=== PATIENT | female | born 1990 | race Caucasian/White ===

== ENCOUNTER 2016-07-14 04:09 | Inpatient (IN) | payer BC, OTHER ==
[~2016-07-14] VITALS: Ht 177.8 cm; Wt 77.2 kg
[~2016-07-14 04:09] MED LIST: BCPILLS PO; MULT1CAP16 PO
[2016-07-14 04:28] VITALS: O2SAT 98
[2016-07-14 04:33] LABS: HEMATOCRIT 38.7 % (37-47); MEAN CELL VOLUME 87.4 fL (80-100); MEAN CORPUSCULAR HGB CONC 34.4 g/dl (32-36); MEAN PLATELET VOLUME 9.5 fL (7.4-10.4); PLATELET COUNT 272 K/uL (130-400); RED BLOOD COUNT 4.43 M/uL (4.2-5.4); WHITE BLOOD COUNT 5.06 K/uL (4.8-10.8)
[2016-07-14 04:37] LABS: MANUAL MICROSCOPIC REQUIRED? NO; REVIEW REQ? NO; URINE APPEARANCE CLEAR (CLEAR); URINE BILIRUBIN NEG (NEG); URINE COLOR YELLOW; URINE NITRITE NEG (NEG); URINE PH 6.5 (4.5-7.5); URINE SPECIFIC GRAVITY 1.005 (1.000-1.030); UROBILINOGEN NEG (NEG)
[2016-07-14 04:52] LABS: CALCIUM 8.5 mg/dl (8.5-10.1); CREATININE 0.83 mg/dl (0.60-1.20); MAGNESIUM 1.9 mg/dl (1.8-2.4); POTASSIUM 3.7 mmol/L (3.5-5.1)
[2016-07-14 04:57] LABS: BASO % 0.2 %; BASO ABS # 0.01 K/uL (0-0.2); COMPLETE YES; EOS % 0.6 %; IG% 0.2 %; LYMPH % 56.1 %; LYMPH ABS # 2.84 K/uL (1.2-3.4); MONO % 4.9 %
[2016-07-14 04:58] LABS: BENZODIAZEPINE, URINE NEG (NEG); COCAINE,URINE NEG (NEG); PHENCYCLIDINE, URINE NEG (NEG)
[2016-07-14 05:03] LABS: THYROID STIMULATING HORMONE 2.85 uIu/ml (0.300-4.500)
[2016-07-14 05:41] LABS: ACETAMINOPHEN < 2 ug/ml (10-30)
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
[2016-07-14 09:11] VITALS: O2SAT 98
[2016-07-14] MEDS ORDERED: BISMUTH SUBSALICYLATE PER ML OMNICELL CHARGE PO PRN (11:15)
[2016-07-14] MEDS ORDERED: ACETAMINOPHEN 325 MG TAB PO PRN (11:15)
[2016-07-14] MEDS ORDERED: MAGNESIUM HYDROXIDE SUSP 30 ML UDC PO PRN (11:15)
[2016-07-14] MEDS ORDERED: ALUMINUM/MAGNESIUM SUSP 30 ML UDC PO PRN (11:15)
[2016-07-14] MEDS ORDERED: SODIUM CHLORIDE 0.65% NA SOLN 45 ML (OCEAN) PRN (11:15)
[2016-07-14] MEDS ORDERED: NON-FORMULARY MEDICATION SCH (11:15)
[2016-07-14] MEDS ORDERED: hydrOXYzine HCL 25 MG TAB PO PRN (11:15)
--- NOTE | 2016-07-14 11:46 | EMERGENCY ROOM VISIT NOTE ---
ED Visit Note First contact with patient: 07:50 The patient was signed out to me at shift change by Jeffrey Courtney PA-C. Please see his dictation for additional details and hospital course. Briefly, the patient was brought in for alcohol intoxication. The patient had made some statements indicating suicidal ideation. The patient was monitored closely and for several hours and allowed to become more sober. She was evaluated in the morning by 3 S. The patient will be admitted to [address] [id number] voluntarily on a 201.
[2016-07-14 12:47] VITALS: BP 113/71; PULSE 84; TEMP 36.7; Ht 177.8 cm; Wt 77.2 kg
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
[2016-07-15 06:55] VITALS: BP_SYST 110; BP_SYST 123; BP_DIAS 70; BP_DIAS 83; PULSE 70; PULSE 86; TEMP 36.5
[2016-07-15] MEDS: CITALOPRAM 20 MG TAB PO SCH (09:18)
--- NOTE | 2016-07-15 12:53 | Psychiatric Progress Notes ---
Progress Note Date of Service July 15, 2016. Interval History 25 yo female admitted voluntarily on 07/14 after drinking and making suicidal statements. She has been struggling with depression since her sister in 2016 from complications from diabetes. Chief Complaint "OK". Subjective Patient was seen & assessed interval progress reviewed with Treatment Team. The patient says that she is still adjusting to the unit. She had disturbed sleep, feeling restless most of the night, missing her fiance. Her mood remains depressed, but denies acute SI today saying that it was the combination of a lot of things, not the least of which was alcohol, that caused her to feel suicidal. She has decided not to drink for a while and plans to avoid the friends that do nothing but drink as a means of socializing. She reviews her stressors including the loss of her sister, and her parents "who don't make very good decisions as adults". Apparently her sister took care of her parents until her , and then "the torch passed to me" when sister . Chelsey is still paying off the costs, which she had to put on her credit card, as neither parent could afford to do so. 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 She doesn't want to tell him that this is a stressor because she knows that he already feels badly about his job and income. Review of Systems Constitutional: + fatigue ENT: No dental problems, No hearing loss, No nasal symptoms, No problem reported, No sore throat, No tinnitus, No trouble swallowing, No unusual epistaxis Respiratory: No cough, No dyspnea at rest, No dyspnea on exertion, No hemoptysis, No problem reported, No shortness of breath, No sputum, No wheezing Cardiovascular: No PND, No chest pain, No claudication, No edema, No orthopnea , No palpitations, No problem reported Abdomen: No GI bleeding, No constipation, No diarrhea, No nausea, No pain, No problem reported, No vomiting Musculoskeletal: No calf pain, No joint pain, No muscle pain, No problem reported, No swelling Neurologic: No balance problems, No memory loss, No numbness/tingling, No paralysis, No problem reported, No vertigo, No weakness Psychiatric: + depression symptoms, + insomnia Integumentary: No bleeding, No color change, No itch, No new/changing skin lesions, No problem reported, No rash Sleep Information Total Hours of Sleep: 9.50 Meal Information Percent of Breakfast Consumed: 90 Percent of Lunch Consumed: 0 Percent of Dinner Consumed: 75 Mental Status Exam During interview pt is: alert and oriented, cooperative Appearance: appropriately dressed, appropriately groomed Eye contact is: good, other (no eye contact) Motor behavior is: no abnormal motor movements Speech: normal in rate, rhythm & volume Affect: depressed, flat Mood is: depressed Thought process: goal directed Thought content: reality based without delusions Suicidal thought are: denied Homicidal thoughts are: denied Hallucinations: denies auditory, denies visual Cognition: attention grossly intact, language grossly intact, other (memory impaired for events while intoxicated) Intelligence estimated to be: average Insight: impaired Judgement: impaired Impression Adjusting to the unit, is missing her fiance. Is tolerating start of Celexa, which she says that she was on last year, was initially helpful, then stopped working. Can't remember max dose. Denies side effects. Will continue 20mg. but increase to 40 mg MICHELLE for max benefit. Will need family meeting with jus. Plan (1) suicidal ideation and cutting Every 15 minute checks for safety Encourage group attendance and participation to work on healthy coping skills and discharge safety plan Family meeting with nahid, will recommend no access to guns, large amounts of pills, or alcohol. (2) Depression Patient agrees that she's been depressed and is willing to go back on citalopram , which she found helpful in the past. We will start 20 mg daily tomorrow, as she is quite hung over and not feeling well today. She will need a referral for outpatient psychiatric follow-up and therapy. Family meeting with nahid whom she lives with. 07/15 - Continue Celexa 20 mg. titrating to 40 mg. as quickly as tolerated - Arrange family meeting with jus (3) Alcohol use with intoxication Tylenol as needed for headache. Encourage fluid intake. Brief intervention performed, was greater than 5 minutes, and consisted of education about the risks of ongoing alcohol use, including risk of worsening depression or interacting with medications. Recommendations will be for a period of abstinence, and this will need to be addressed with motivational interviewing throughout her stay. Visit Code E&M Code: 89281 Inventory Assets Strengths: "I'm a hard worker," "I'm dedicated. Risk Factors Assessment : Yes /single/: Yes Health problems: No Mental Health Diagnoses: Yes Previous attempt: Yes Previous attempt; didn't tell: Yes Family history of suicide: No Previous psychiatric stay: No Hopelessness: Yes Smoker: No Protective Factors Assessment Mandaeism beliefs: No : No Responsible for young children: No Employed: Yes Stable relationships: Yes Supportive family: No Good rapport with provider: No Data Vital Signs Last 24 Hrs: Date Time Temp Pulse Resp B/P Pulse Ox O2 Delivery O2 Flow Rate FiO2 07/15/16 06:55 36.5 70 16 110/70 86 123/83 07/14/16 12:47 36.7 84 16 113/71 Meds Administered Last 24 Hrs: Meds Administered (Past 24Hrs) Medications (Trade) Dose Ordered Sig/Olvin Route Start Time Stop Time Status Last Admin Dose Admin Acetaminophen (Tylenol Tab) 650 mg Q4H PRN PO 07/14/16 11:15 08/13/16 11:14 07/14/16 13:46 650 MG Citalopram Hydrobromide (celeXA TAB) 20 mg QAM PO 07/15/16 09:00 08/14/16 08:59 07/15/16 09:18 20 MG Lab Results Last 24 Hrs: 07/14/16 04:22 Red Blood Count 4.43, Mean Corpuscular Volume 87.4, Mean Corpuscular Hemoglobin 30.0, Mean Corpuscular Hemoglobin Concent 34.4, Mean Platelet Volume 9.5, Neutrophils (%) (Auto) 38.0, Lymphocytes (%) (Auto) 56.1, Monocytes (%) (Auto) 4.9, Eosinophils (%) (Auto) 0.6, Basophils (%) (Auto) 0.2, Neutrophils # (Auto) 1.92, Lymphocytes # (Auto) 2.84, Monocytes # (Auto) 0.25, Eosinophils # (Auto) 0.03, Basophils # (Auto) 0.01 07/14/16 04:22 Test 07/14/16 04:15 07/14/16 04:22 07/14/16 04:56 Urine Color YELLOW Urine Appearance CLEAR (CLEAR) Urine pH 6.5 (4.5-7.5) Urine Specific [place] 1.005 (1.000-1.030) Urine Protein NEG (NEG) Urine Glucose (UA) NEG (NEG) Urine Ketones NEG (NEG) Urine Occult Blood NEG (NEG) Urine Nitrite NEG (NEG) Urine Bilirubin NEG (NEG) Urine Urobilinogen NEG (NEG) Urine Leukocyte Esterase NEG (NEG) Urine Test NEG (NEG) Urine Opiates Screen NEG (NEG) Urine Methadone, Qualitative NEG (NEG) Urine Barbiturates NEG (NEG) Urine Phencyclidine (PCP) Level NEG (NEG) Ur Amphetamine/Methamphetamine NEG (NEG) MDMA (Ecstasy) Screen NEG (NEG) Urine Benzodiazepines Screen NEG (NEG) Urine Cocaine Metabolite NEG (NEG) Urine Marijuana (THC) NEG (NEG) White Blood Count 5.06 K/uL (4.8-10.8) Red Blood Count 4.43 M/uL (4.2-5.4) Hemoglobin 13.3 g/dL (12.0-16.0) Hematocrit 38.7 % (37-47) Mean Corpuscular Volume 87.4 fL (80-100) Mean Corpuscular Hemoglobin 30.0 pg (25-34) Mean Corpuscular Hemoglobin Concent 34.4 g/dl (32-36) Platelet Count 272 K/uL (130-400) Mean Platelet Volume 9.5 fL (7.4-10.4) Neutrophils (%) (Auto) 38.0 % Lymphocytes (%) (Auto) 56.1 % Monocytes (%) (Auto) 4.9 % Eosinophils (%) (Auto) 0.6 % Basophils (%) (Auto) 0.2 % Neutrophils # (Auto) 1.92 K/uL (1.4-6.5) Lymphocytes # (Auto) 2.84 K/uL (1.2-3.4) Monocytes # (Auto) 0.25 K/uL (0.11-0.59) Eosinophils # (Auto) 0.03 K/uL (0-0.5) Basophils # (Auto) 0.01 K/uL (0-0.2) RDW Standard Deviation 41.0 fL (36.4-46.3) RDW Coefficient of Variation 12.7 % (11.5-14.5) Immature Granulocyte % (Auto) 0.2 % Immature Granulocyte # (Auto) 0.01 K/uL (0.00-0.02) Red Blood Cell Morphology Unremarkable Anion Gap 12.0 mmol/L (3-11) Est Creatinine Clear Calc Drug Dose 108.3 ml/min Estimated GFR () 113.6 Estimated GFR (Non- 98.0 BUN/Creatinine Ratio 11.0 (10-20) Calcium Level 8.5 mg/dl (8.5-10.1) Magnesium Level 1.9 mg/dl (1.8-2.4) Total Bilirubin 0.2 mg/dl (0.2-1) Aspartate Amino Transf (AST/SGOT) 13 U/L (15-37) Alanine Aminotransferase (ALT/SGPT) 21 U/L (12-78) Alkaline Phosphatase 55 U/L (45-117) Total Protein 7.3 gm/dl (6.4-8.2) Albumin 3.7 gm/dl (3.4-5.0) Globulin 3.6 gm/dl (2.5-4.0) Albumin/Globulin Ratio 1.0 (0.9-2) Lipase 166 U/L (73-393) Thyroid Stimulating Hormone (TSH) 2.850 uIu/ml (0.300-4.500) Ethyl Alcohol mg/dL 177.0 mg/dl (0-3) Salicylates Level < 1.7 mg/dl (2.8-20) Acetaminophen Level < 2 ug/ml (10-30) Problem Qualifiers (1) Depression: Depression Type: major depressive disorder Major depression recurrence: recurrent Active/Remission status: currently active Major depression episode severity: severe Psychotic features: without psychotic features Qualified Codes: F33.2 - Major depressive disorder, recurrent severe without psychotic features
[2016-07-15] MEDS ORDERED: NURSING VERBAL MED ORDER ONE (21:00)
[2016-07-15] MEDS: SPRINTEC PO SCH (22:34)
[2016-07-16] MEDS: hydrOXYzine HCL 25 MG TAB PO PRN ×2 (00:04→23:13)
[2016-07-16 06:56] VITALS: BP_SYST 121; BP_SYST 126; BP_DIAS 73; BP_DIAS 79; PULSE 69; PULSE 89; TEMP 36.7
[2016-07-16] MEDS: CITALOPRAM 20 MG TAB PO SCH (08:22)
--- NOTE | 2016-07-16 12:03 | Psychiatric Progress Notes ---
Progress Note Date of Service July 16, 2016. Interval History 25 yo female admitted voluntarily on 07/14 after drinking and making suicidal statements. She has been struggling with depression since her sister in 2016 from complications from diabetes. Chief Complaint "Just trying to talk more, say how I'm feeling". Subjective Patient was seen & assessed interval progress reviewed with nursing. Staff report She states her mood is improved from admission, although still low. She has always struggled to communicate how she is feeling to others, and wants to work on being able to talk to her fiance about her emotions. Staff suggested a grief support group which she is willing to consider. She says when she was in therapy in the past it didn't help at all, and is worried about that happening again. Sleep was good Friday night, but poor last night, as she couldn't fall asleep, and took sleep medication around midnight, and fell asleep but was then groggy in the morning. Appetite remains low but is eating some of each meal. Rates mood a 4 out of 10, as opposed to 2 out of 10 on admission. Denies SI and urges to cut. Says her mother is protective, as she wouldn't want her to lose her only other daughter, or to her fiance. She denies side effects to Celexa, and is willing to increase to 40mg. Sleep Information Total Hours of Sleep: 5.00 Meal Information Percent of Breakfast Consumed: 100 Percent of Lunch Consumed: 10 Percent of Dinner Consumed: 100 Mental Status Exam During interview pt is: alert and oriented, cooperative Appearance: appropriately dressed, appropriately groomed Eye contact is: fair Motor behavior is: steady gait & station, no abnormal motor movements Speech: normal in rate, rhythm & volume (monotone) Affect: depressed, flat, constricted Mood is: depressed Thought process: goal directed Thought content: reality based without delusions Suicidal thought are: denied Homicidal thoughts are: denied Hallucinations: denies auditory, denies visual Cognition: memory grossly intact (except for events while intoxicated the night of presentation), attention grossly intact, language grossly intact Intelligence estimated to be: average Insight: impaired Judgement: impaired Impression Adjusting to the unit, but is homesick, missing her fiance. She is working on trying to open up and communicate with others more, but remains very depressed. Is tolerating start of Celexa, and will increase to 40 mg for maximum benefit. Will have a family meeting with jus today, and needs referrals for outpatient mental health services. She is ambivalent about therapy, but could benefit and we will continue to encourage. Plan (1) suicidal ideation and cutting Every 15 minute checks for safety Encourage group attendance and participation to work on healthy coping skills and discharge safety plan Family meeting with nahid, will recommend no access to guns, large amounts of pills, or alcohol. 07/16 - has not engaged in self-injurious behavior here. (2) Depression Patient agrees that she's been depressed and is willing to go back on citalopram , which she found helpful in the past. We will start 20 mg daily tomorrow, as she is quite hung over and not feeling well today. She will need a referral for outpatient psychiatric follow-up and therapy. Family meeting with nahid whom she lives with. 07/15 - Continue Celexa 20 mg. titrating to 40 mg. as quickly as tolerated - Arrange family meeting with jus 07/16 - Increase citalopram to 40mg for tomorrow. - Family meeting with jus today. - Will need referral for outpatient care - considering a grief support group , will need medication management, and encouraging therapy, although she is ambivalent about it.. (3) Alcohol use with intoxication Tylenol as needed for headache. Encourage fluid intake. Brief intervention performed, was greater than 5 minutes, and consisted of education about the risks of ongoing alcohol use, including risk of worsening depression or interacting with medications. Recommendations will be for a period of abstinence, and this will need to be addressed with motivational interviewing throughout her stay. Visit Code E&M Code: 97697 Inventory Assets Strengths: "I'm a hard worker," "I'm dedicated." Risk Factors Assessment : Yes /single/: Yes Health problems: No Mental Health Diagnoses: Yes Previous attempt: Yes Previous attempt; didn't tell: Yes Family history of suicide: No Previous psychiatric stay: No Hopelessness: Yes Smoker: No Protective Factors Assessment Worship beliefs: No : No Responsible for young children: No Employed: Yes Stable relationships: Yes Supportive family: No Good rapport with provider: No Data Vital Signs Last 24 Hrs: Date Time Temp Pulse Resp B/P Pulse Ox O2 Delivery O2 Flow Rate FiO2 07/16/16 06:56 36.7 69 16 121/73 89 126/79 Meds Administered Last 24 Hrs: Meds Administered (Past 24Hrs) Medications (Trade) Dose Ordered Sig/Olvin Route Start Time Stop Time Status Last Admin Dose Admin Citalopram Hydrobromide (celeXA TAB) 20 mg QAM PO 07/15/16 09:00 08/14/16 08:59 07/16/16 08:22 20 MG Non-Formulary Medication (Non-Formulary Patient'S Own Med) 1 ea HS PO 07/15/16 22:00 08/14/16 21:59 07/15/16 22:34 1 EA Problem Qualifiers (1) Depression: Depression Type: major depressive disorder Major depression recurrence: recurrent Active/Remission status: currently active Major depression episode severity: severe Psychotic features: without psychotic features Qualified Codes: F33.2 - Major depressive disorder, recurrent severe without psychotic features
[2016-07-16] MEDS: SPRINTEC PO SCH (21:01)
[2016-07-17 06:50] VITALS: BP_SYST 107; BP_SYST 112; BP_DIAS 66; BP_DIAS 77; PULSE 64; PULSE 91; TEMP 36.5
[2016-07-17] MEDS: CITALOPRAM 20 MG TAB PO SCH (08:40)
--- NOTE | 2016-07-17 14:03 | Psychiatric Progress Notes ---
Progress Note Date of Service July 17, 2016. Interval History 25 yo female admitted voluntarily on 07/14 after drinking and making suicidal statements. She has been struggling with depression since her sister in 2016 from complications from diabetes. Chief Complaint "About the same". Subjective Patient was seen & assessed interval progress reviewed with Treatment Team. Staff report she remains depressed, flat, and expressed resistance to aftercare , saying she can't afford a copay and can only go at night. She says her mood remains depressed, "hasn't been over a 5." She denies SI. She is struggling to talk about how she is feeling, saying she doesn't like to talk about it, but knows that if she doesn't, things build up, and then she gets overwhelmed. She says "no matter how much I talk about it, the problem doesn't go away." She says she has "always been a very negative person." She denies side effects to medications. She continues to worry that she'll have difficulty getting time off work to go to appointments. Sleep Information Total Hours of Sleep: 6.00 Meal Information Percent of Breakfast Consumed: 100 Percent of Lunch Consumed: 100 Percent of Dinner Consumed: 100 Mental Status Exam During interview pt is: alert and oriented, cooperative Appearance: appropriately dressed, appropriately groomed Eye contact is: fair Motor behavior is: steady gait & station, no abnormal motor movements Speech: normal in rate, rhythm & volume Affect: depressed, constricted (more reactive), other Mood is: depressed Thought process: goal directed Thought content: reality based without delusions Suicidal thought are: denied Homicidal thoughts are: denied Hallucinations: denies auditory, denies visual Cognition: memory grossly intact, attention grossly intact, language grossly intact Intelligence estimated to be: average Insight: impaired Judgement: impaired Impression Adjusting to the unit, but is homesick, missing her fiance. She is working on trying to open up and communicate with others more, but remains very depressed. Is tolerating start of Celexa, and will increase to 40 mg for maximum benefit. Had a family meeting with jus, and needs referrals for outpatient mental health services. She is ambivalent about therapy, but could benefit and we will continue to encourage. Plan (1) suicidal ideation and cutting Every 15 minute checks for safety Encourage group attendance and participation to work on healthy coping skills and discharge safety plan Family meeting with fianc, will recommend no access to guns, large amounts of pills, or alcohol. 07/16 - has not engaged in self-injurious behavior here. (2) Depression Patient agrees that she's been depressed and is willing to go back on citalopram , which she found helpful in the past. We will start 20 mg daily tomorrow, as she is quite hung over and not feeling well today. She will need a referral for outpatient psychiatric follow-up and therapy. Family meeting with nahid whom she lives with. 07/15 - Continue citalopram 20 mg. titrating to 40 mg. as quickly as tolerated - Arrange family meeting with jus 07/16 - Increase citalopram to 40mg for tomorrow. - Family meeting with jus today. - Will need referral for outpatient care - considering a grief support group , will need medication management, and encouraging therapy, although she is ambivalent about it. (3) Alcohol use with intoxication Tylenol as needed for headache. Encourage fluid intake. Brief intervention performed, was greater than 5 minutes, and consisted of education about the risks of ongoing alcohol use, including risk of worsening depression or interacting with medications. Recommendations will be for a period of abstinence, and this will need to be addressed with motivational interviewing throughout her stay. Discharge / Aftercare Planning Therapist: Name: [facility] Date of Appointment: July 31, 2016 Time of Appointment: noon Appointment Notes: and 08/06 at 5:30pm Visit Code E&M Code: 96551 Inventory Assets Strengths: "I'm a hard worker," "I'm dedicated. Risk Factors Assessment : Yes /single/: Yes Health problems: No Mental Health Diagnoses: Yes Previous attempt: Yes Previous attempt; didn't tell: Yes Family history of suicide: No Previous psychiatric stay: No Hopelessness: Yes Smoker: No Protective Factors Assessment Worship beliefs: No : No Responsible for young children: No Employed: Yes Stable relationships: Yes Supportive family: No Good rapport with provider: No Data Vital Signs Last 24 Hrs: Date Time Temp Pulse Resp B/P Pulse Ox O2 Delivery O2 Flow Rate FiO2 07/17/16 06:50 36.5 64 16 107/66 91 112/77 Meds Administered Last 24 Hrs: Meds Administered (Past 24Hrs) Medications (Trade) Dose Ordered Sig/Olvin Route Start Time Stop Time Status Last Admin Dose Admin Non-Formulary Medication (Non-Formulary Patient'S Own Med) 1 ea HS PO 07/15/16 22:00 08/14/16 21:59 07/16/16 21:01 1 EA Problem Qualifiers (1) Depression: Depression Type: major depressive disorder Major depression recurrence: recurrent Active/Remission status: currently active Major depression episode severity: severe Psychotic features: without psychotic features Qualified Codes: F33.2 - Major depressive disorder, recurrent severe without psychotic features
[2016-07-17] MEDS: SPRINTEC PO SCH (21:02)
[2016-07-17] MEDS: hydrOXYzine HCL 25 MG TAB PO PRN (22:11)
[2016-07-18 07:01] VITALS: BP_SYST 116; BP_SYST 120; BP_DIAS 73; BP_DIAS 80; PULSE 66; PULSE 80; TEMP 36.6
[2016-07-18] MEDS ORDERED: CITALOPRAM 20 MG TAB PO SCH (09:00)
[2016-07-18] MEDS ORDERED: CITA40TA4 PO (09:51)
--- NOTE | 2016-07-18 10:10 | Discharge Instructions ---
Discharge Information Report Includes Report will include the: Discharge Instructions & Summary Admission Admission Date / Time: Jul 14, 2016 at 11:10 Reason for Admission: Suicidal Ideation And Cutting Discharge Discharge Diagnosis / Problem: Major depression, recurrent, severe Condition at Discharge: Fair Discharge Goals Goal(s): Improve function, Improve disease control, Learn about illness, Therapeutic intervention Activity Recommendations Activity Limitations: per Instructions/Follow-up section . Instructions / Follow-Up Instructions / Follow-Up . SPECIAL CARE INSTRUCTIONS: 1. Follow through with your scheduled aftercare appointments. If unable to keep an appointment, please call to reschedule. 2. Take your medication only as prescribed. Medication should not be changed or stopped without the approval of your doctor. In the event of worsening symptoms or concerns about side effects, contact your doctor immediately. 3. Utilize new healthy coping skills, anger management skills, and stress management skills learned during your hospitalization. Journal feelings and process them with a support person. Identify stressors or situations that may result in relapse, deterioration or inappropriate behaviors and develop a plan to deal with those issues. 4. If your coping skills are ineffective and you are in crisis, contact your outpatient providers for direction. If unable to reach your providers, please call the CAN HELP LINE AT or go to the closest Emergency Room. 5. Avoid alcohol and un-prescribed drugs. It is recommended that you abstain from alcohol until your mood has stabilized, and then drink only in moderation, due to the risk of worsening depressive symptoms and self-harm. 6. You have been provided with the Mental Health Advance Directives Pamphlet for your review. AFTERCARE APPOINTMENTS: * Please call your insurance company prior to your scheduled appointment to confirm your aftercare providers are covered. Take your insurance information to your appointments. . Discharge / Aftercare Planning Primary Care Physician: Name: recommend that you restablish with your PCP Psychiatrist: Name: LYUDMILA West Date of Appointment: August 09, 2016 Time of Appointment: 8:30am Therapist: Name Of Therapist: [facility] at [facility] Date of Appointment: July 23, 2016 Time of Appointment: 3pm Appointment Comments: and, 07/31 at noon, 08/06 at 5:30pm Other: Name of Appointment #1: [email or web address] Appointment #1 Notes: web site has groups available for [place] related to grief . Follow-Up Care Plan for Follow-Up Care: See above. Current Hospital Diet Patient's current hospital diet: Regular Diet Discharge Diet Recommended Diet: Regular Diet Procedures Procedures Performed: No Pending Studies Pending Studies at Discharge: No Medical Emergencies . Who to Call and When: Medical Emergencies: For questions or emergencies related to your hospital stay, please contact the Inpatient Behavioral Health Unit at [phone]. A director of food and nutrition is on-call 07/10 for the Behavioral Health Unit for emergencies At any time you feel your situation is an emergency, you may also call 911 immediately. . Non-Emergent Contact Non-Emergency issues call your: Primary Care Provider, Psychiatrist, Therapist Advance Directives Existing Advance Directive: No Do You Have an Existing Mental: No Existing Living Will: No Existing Power of Preventive Maintenance Engineer: No Advance Directives Info Given: To Pt/S.O. Advance Directives Reason: Declines as Mental Health Visit. Discharge Summary Admission HPI Per the Admitting provider: This is the patient's first psychiatric hospitalization. According to records, she presented to the emergency room via EMS and police early this morning after family contacted police because the patient was stating she wanted to kill herself and cutting her wrists. She had been out drinking with her friends, appeared intoxicated on arrival, was covered with grass, and her blood alcohol level was 177. Her friend stated she had more frequent episodes of agitation and suicidality over the past few weeks, and that her mood has been depressed since her sister in August 2015. She made statements about wanting to join her sister. She was monitored in the emergency room until she became clinically sober, and was then seen by the psychiatric liaison nurse. She reported a history of treatment for depression and anxiety in the past, but is not currently in treatment, and also has a history of 1 suicide attempt by cutting her wrists. She endorsed multiple stressors, including the of her sister and being fired from her job. She was poorly engaged, answering most questions with 1 word or "I don't know," and admitted to suicidal thoughts and feeling that "life is not worth living sometimes." She was willing for voluntary admission. On my assessment, the patient is in bed and is feeling hung over with a headache. Although she answers questions appropriately, answers are brief, and she keeps her back to this provider throughout the interaction. She states that she has poor memory for the events of last night, as she blacked out due to intoxication. She went out with friends to a local club around 11 PM, and was drinking liquor, she estimates 4 drinks. The last thing she remembers is being with her friends in the bar, but says she was told that "I flipped out, they had to hold me down" at her friend's parents' house. They told her that she was "upset about my sister." She states she is not surprised this happened, as it has happened before, although it wasn't this bad. She admits to cutting herself on her bilateral arms last night, which she says she has not been since she was around 15 years old. She admits to suicidal ideation, but is vague about specific plans or intent. She endorses depressed mood since her sister 10 months ago, hopelessness, decreased energy, crying spells, and anhedonia. She states she is always tired, despite sleeping 8 hours or more a night. She denies changes in weight, appetite, and concentration. She states her fianc is supportive, but she doesn't like to talk about her problems. She wants to "learn how to deal with my stuff." She states she hadn't considered seeking out treatment because she had been too busy working, but then states that she was fired from her previous job 4 months ago, and is now working part-time at a bank. She reports a history of anxiety that was treated about a year ago with Celexa which she felt was helpful. At the time she was "getting really upset by things, over thinking things," and links this to job stress in her job at the time. She denies current symptoms of generalized anxiety, panic disorder, and any history of manic or psychotic symptoms. Admission Exam Per the Admitting provider: Please see admission H&P. Hospital Course (1) suicidal ideation and cutting Every 15 minute checks for safety Encourage group attendance and participation to work on healthy coping skills and discharge safety plan Family meeting with nahid, will recommend no access to guns, large amounts of pills, or alcohol. 5/2 - has not engaged in self-injurious behavior here, and consistently denying SI. (2) Depression Patient agrees that she's been depressed and is willing to go back on citalopram , which she found helpful in the past. We will start 20 mg daily tomorrow, as she is quite hung over and not feeling well today. She will need a referral for outpatient psychiatric follow-up and therapy. Family meeting with nahid whom she lives with. 07/15 - Continue citalopram 20 mg. titrating to 40 mg. as quickly as tolerated - Arrange family meeting with jus 07/16 - Increase citalopram to 40mg for tomorrow. - Family meeting with jus today. - Will need referral for outpatient care - considering a grief support group , will need medication management, and encouraging therapy, although she is ambivalent about it. 07/18 - Rx written for 40mg citalopram, #30 day supply. Initial eval with Janelle Raphael at [facility] on 08/09, therapy intake 07/23, and provided information on grief services. (3) Alcohol use with intoxication Tylenol as needed for headache. Encourage fluid intake. Brief intervention performed, was greater than 5 minutes, and consisted of education about the risks of ongoing alcohol use, including risk of worsening depression or interacting with medications. Recommendations will be for a period of abstinence, and this will need to be addressed with motivational interviewing throughout her stay. Risk Factors Assessment : Yes /single/: Yes Access to guns: No Health problems: No Mental Health Diagnoses: Yes Substance use disorders: Yes Previous attempt: Yes Previous attempt; didn't tell: Yes Family history of suicide: No Previous psychiatric stay: No Hopelessness: Yes Smoker: No Protective Factors Assessment Hoahaoism beliefs: No : No Responsible for young children: No Employed: Yes Stable relationships: Yes Supportive family: No Good rapport with provider: No Absence of risk factors above: Yes (risk factors were mitigated by treating depression with medication, involving the patient in groups and therapy on the unit, a family meeting with her nahid whom she lives with, reviewing recommendations that medications be secured in the home and that she not have access to guns, educating her about the risks of alcohol use and the recommendations for a period of abstinence until her mood has stabilized, and referring her for outpatient mental health services. She has been calm and cooperative here, is tolerating medication well, has consistently denied suicidal thoughts, has not engaged in self-injurious behavior, has participated in groups and therapy, is able to review her coping skills and discharge safety plan, and is willing to follow-up with outpatient providers. She is no longer at acute risk of harm to herself, is requesting discharge, and can be managed as an outpatient at this time.) Day of Discharge Assessment Hospital course: The patient tolerated citalopram well, and her dose was increased to 40 mg daily to target depression. Her affect remained restricted to depressed throughout her hospital stay, although did improve at the very and of her hospitalization. She consistently denied suicidal thoughts, but struggled to openly discuss her emotions, which she states is a long-standing problem for her. She did attend groups and participate, and had a family meeting with her fianc on 07/16/2016. During the meeting, she appeared sad and was hesitant to talk. Both she and her fianc agree that her depression had started after her sister about 10 months ago, and that she has a tendency to keep everything inside until she "explodes." While she recognized the need to change this pattern, it has been difficult for her to put into practice. She was willing to consider outpatient care, although was initially reluctant to agree to therapy, due to her one past experience of therapy as a teenager which she did not feel was helpful. She was initially putting out multiple barriers to aftercare, including finances, her work schedule, and thoughts that it wouldn't help. She talked about the stressors with her job and her financial problems, and felt she would never be able to have children and less she had a better paying job. She also worries about her 9 and 11-year-old nephews, as they have significant problems and she worries that their father cannot adequately care for them since the of her sister. Her fianc confirmed that she does not have access to guns. After much discussion with staff, she ultimately agreed to follow-up with a psychiatrist, therapist, and was given information about local grief resources. She was anxious to be discharged quickly from the hospital, stating that she needed to get back to work and was homesick. She was encouraged to stay a bit longer as her mood remained quite depressed, asking to leave on a daily basis, but as she continued to request to leave, was discharged on 07/18/2016. Date of discharge assessment: The patient states that her mood has improved since admission, noting she feels more hopeful for the future, and willing to give medication and outpatient treatment chance to work. She denies any side effects from the citalopram. She is willing to follow-up with both a therapist and psychiatric provider, although she continues to express worries about integrating these appointments into her work schedule. We have reviewed the appointments that are already scheduled, and she will be able to attend them. She has been encouraged to discuss the need for regular appointments with her boss and to try to plan for this in advance when making her work schedule. She is able to review the coping skills she's worked on here and her discharge safety plan. She denies thoughts of harming herself and feel safe to go home. She is attending to her ADLs independently, and reports good sleep and appetite here. Well nourished, well developed WF appearing stated age. Casually dressed and adequately groomed. Calm and cooperative. Seated in NAD, with fair eye contact and no abnormal movements. Speech is normal rate, volume, and tone. Mood is "better," and affect is stable and congruent. Thoughts are linear, logical and goal directed. The patient denied suicidal and homicidal ideation and was able to safety plan. No paranoia, delusions, or hallucinations, and did not appear to be responding to internal stimuli. Cognition was grossly intact. Alert and oriented to person, place and time. Intelligence is consistent with level of education. Insight and and judgment are fair. Laboratory Test 07/14/16 04:15 07/14/16 04:22 07/14/16 04:56 Urine Color YELLOW Urine Appearance CLEAR Urine pH 6.5 Urine Specific Helper 1.005 Urine Protein NEG Urine Glucose (UA) NEG Urine Ketones NEG Urine Occult Blood NEG Urine Nitrite NEG Urine Bilirubin NEG Urine Urobilinogen NEG Urine Leukocyte Esterase NEG Urine Test NEG Urine Opiates Screen NEG Urine Methadone, Qualitative NEG Urine Barbiturates NEG Urine Phencyclidine (PCP) Level NEG Ur Amphetamine/Methamphetamine NEG MDMA (Ecstasy) Screen NEG Urine Benzodiazepines Screen NEG Urine Cocaine Metabolite NEG Urine Marijuana (THC) NEG White Blood Count 5.06 Red Blood Count 4.43 Hemoglobin 13.3 Hematocrit 38.7 Mean Corpuscular Volume 87.4 Mean Corpuscular Hemoglobin 30.0 Mean Corpuscular Hemoglobin Concent 34.4 Platelet Count 272 Mean Platelet Volume 9.5 Neutrophils (%) (Auto) 38.0 Lymphocytes (%) (Auto) 56.1 Monocytes (%) (Auto) 4.9 Eosinophils (%) (Auto) 0.6 Basophils (%) (Auto) 0.2 Neutrophils # (Auto) 1.92 Lymphocytes # (Auto) 2.84 Monocytes # (Auto) 0.25 Eosinophils # (Auto) 0.03 Basophils # (Auto) 0.01 RDW Standard Deviation 41.0 RDW Coefficient of Variation 12.7 Immature Granulocyte % (Auto) 0.2 Immature Granulocyte # (Auto) 0.01 Red Blood Cell Morphology Unremarkable Sodium Level 144 Potassium Level 3.7 Chloride Level 108 Carbon Dioxide Level 24 Anion Gap 12.0 Blood Urea Nitrogen 9 Creatinine 0.83 Est Creatinine Clear Calc Drug Dose 108.3 Estimated GFR () 113.6 Estimated GFR (Non- 98.0 BUN/Creatinine Ratio 11.0 Random Glucose 97 Calcium Level 8.5 Magnesium Level 1.9 Total Bilirubin 0.2 Aspartate Amino Transferase (AST) 13 Alanine Aminotransferase (ALT) 21 Alkaline Phosphatase 55 Total Protein 7.3 Albumin 3.7 Globulin 3.6 Albumin/Globulin Ratio 1.0 Lipase 166 Thyroid Stimulating Hormone (TSH) 2.850 Ethyl Alcohol mg/dL 177.0 Salicylates Level < 1.7 Acetaminophen Level < 2 Total Time Total Time Spent (min): Greater than 30 minutes Total Time Included: examination of the patient, discharge planning, medication reconciliation Tobacco Cessation at Discharge Smoking Status: Never Smoker FDA approved Prescription: non-smoker Problem Qualifiers (1) Depression: Depression Type: major depressive disorder Major depression recurrence: recurrent Active/Remission status: currently active Major depression episode severity: severe Psychotic features: without psychotic features Qualified Codes: F33.2 - Major depressive disorder, recurrent severe without psychotic features
== END 2016-07-18 10:45 | disposition home or self-care (01) | DRG 885 ==
LOC: EDBD 04:09 → C.EDB 04:10 → C.MHU 11:10
PROVIDERS: ADMIT Psychiatry & Neurology Psychiatry; ATTEND Psychiatry & Neurology Psychiatry
DX: F33.2 Major depressive disorder, recurrent severe without psychotic features (principal); R45.851 Suicidal ideations; F10.129 Alcohol abuse with intoxication, unspecified; S60.911A Unspecified superficial injury of right wrist, initial encounter; S60.912A Unspecified superficial injury of left wrist, initial encounter; Y92.019 Unspecified place in single-family (private) house as the place of occurrence of the external cause; X78.9XXA Intentional self-harm by unspecified sharp object, initial encounter

== ENCOUNTER 2016-10-27 03:29 | Emergency (ER) | payer BC, OTHER ==
[2016-10-27 03:29] VITALS: TEMP 36.8; O2SAT 98
[~2016-10-27 03:29] MED LIST changes: +CITA40TA4 PO; -MULT1CAP16 PO; +SODIUM CHLORIDE 0.9% 1000ML 1,000 ML IV STA
[2016-10-27 03:57] LABS: BASO % 0.4 %; BASO ABS # 0.02 K/uL (0-0.2); COMPLETE YES; EOS % 0.2 %; HEMATOCRIT 41.4 % (37-47); IG% 0.4 %; LYMPH % 45.9 %; LYMPH ABS # 2.25 K/uL (1.2-3.4); MEAN CELL VOLUME 86.6 fL (80-100); MEAN CORPUSCULAR HEMOGLOBIN 30.1 pg (25-34); MEAN CORPUSCULAR HGB CONC 34.8 g/dl (32-36); MEAN PLATELET VOLUME 9.6 fL (7.4-10.4); MONO % 8.6 %; NEUT % 44.5 %; PLATELET COUNT 268 K/uL (130-400); RED BLOOD COUNT 4.78 M/uL (4.2-5.4)
[2016-10-27 04:33] LABS: ALKALINE PHOSPHATASE 59 U/L (45-117); ALT/SGPT 20 U/L (12-78); BLOOD UREA NITROGEN 9 mg/dl (7-18); BUN/CREATININE RATIO 15.2 (10-20); CALCIUM 8.6 mg/dl (8.5-10.1); CARBON DIOXIDE 28 mmol/L (21-32); CHLORIDE 109 mmol/L (98-107); CREATININE 0.62 mg/dl (0.60-1.20); GLUCOSE 95 mg/dl (70-99); SODIUM 141 mmol/L (136-145)
[2016-10-27 04:41] LABS: URINE APPEARANCE CLEAR (CLEAR); URINE BILIRUBIN NEG (NEG); URINE COLOR YELLOW; URINE NITRITE NEG (NEG); URINE SPECIFIC GRAVITY 1.013 (1.000-1.030); UROBILINOGEN NEG (NEG)
[2016-10-27 04:59] LABS: MANUAL MICROSCOPIC REQUIRED? NO; REVIEW REQ? NO
[2016-10-27 05:20] LABS: POTASSIUM 3.6 mmol/L (3.5-5.1)
[2016-10-27 05:26] LABS: AST/SGOT 12 U/L (15-37)
--- NOTE | 2016-10-27 06:10 | EMERGENCY ROOM VISIT NOTE ---
History Report prepared by Tammy: Jd Montes De Oca Under the Supervision of: Dr. Chance Hancock M.D. First contact with patient: 03:28 Chief Complaint: ALCOHOL OVERDOSE Stated Complaint: Unresponsive, ETOH, Superficial Lac Nursing Triage Summary: Pt arrived via EMS from roadside. Pt found unresponsive on side of road by stranger. Pt found with broken alcohol bottle. Superficial lateral lacerations to right forearm. Possibly self inflicted. Old lateral scars to right hip which may also be self inflicted. Unresponsive to pain. Regular respiratory rate and rhythm. History of Present Illness The patient is a 25 year old female who presents to the Emergency Room for an alcohol overdose occurring prior to arrival. Per the EMS, the patient was found unresponsive on the side of the road by a passerby, and the nursing educator and EMS were called. The patient has lacerations to her wrist, though she states that she is unsure how they got there. She states that she was drinking at her friend's house earlier in the night, but she does not remember anything afterwards. History is limited secondary to intoxication. Source of History: patient, EMS History Limited By: intoxication Onset: prior to arrival Position: other (global) Quality: other (alcohol overdose) Note: Associated symptoms: Right wrist lacerations Review of Systems HPI is limited secondary to intoxication Social History Smoking Status: Current Every Day Smoker Occupation Status: employed Current/Historical Medications Scheduled Control Pills ( Control Pills), 1 TAB PO DAILY Citalopram Hydrobromide (Celexa), 40 MG PO DAILY Allergies Coded Allergies: Iodinated Diagnostic Agents (Verified Allergy, Intermediate, hives, ) Physical Exam Vital Signs Date Time Temp Pulse Resp B/P (MAP) Pulse Ox O2 Delivery O2 Flow Rate FiO2 10/27/16 09:25 88 16 106/57 97 Room Air 10/27/16 05:51 86 14 125/74 98 Room Air 10/27/16 05:26 76 14 110/64 94 Room Air 10/27/16 04:30 88 16 128/83 95 Room Air 10/27/16 03:37 92 10/27/16 03:29 98 Room Air 10/27/16 03:29 36.8 92 15 126/82 98 Room Air Physical Exam Vital signs reviewed. General: Odor of EtOH in the breath, disheveled 25-year-old female. No signs of trauma. HEENT: Mild scleral injection bilaterally, PERRLA, neck supple, dry mucous membranes. Cardiovascular: Regular rate and rhythm, no extra sounds. Pulmonary: Clear to auscultation bilaterally, normal work of breathing. Abdomen: Soft, nontender, nondistended, positive bowel sounds. Musculoskeletal: Superficial lacerations to the right wrist. No peripheral edema Skin: Warm, dry, no rash. Atraumatic. Neurologic: Patient is currently nonverbal. Medical Decision & Procedures ER Provider Diagnostic Interpretation: Radiology results as stated below per my review and radiologist interpretation: CT HEAD: No ICH, mass effect or edema. No evidence of acute cortical stroke. Visualized sinuses and mastoid air cells are clear. Laboratory Results 10/27/16 03:43 Red Blood Count 4.78, Mean Corpuscular Volume 86.6, Mean Corpuscular Hemoglobin 30.1, Mean Corpuscular Hemoglobin Concent 34.8, Mean Platelet Volume 9.6, Neutrophils (%) (Auto) 44.5, Lymphocytes (%) (Auto) 45.9, Monocytes (%) (Auto) 8.6, Eosinophils (%) (Auto) 0.2, Basophils (%) (Auto) 0.4, Neutrophils # (Auto) 2.18, Lymphocytes # (Auto) 2.25, Monocytes # (Auto) 0.42, Eosinophils # (Auto) 0.01, Basophils # (Auto) 0.02 10/27/16 03:43 10/27/16 04:44 Test 10/27/16 03:42 10/27/16 03:43 10/27/16 04:25 10/27/16 04:34 Bedside Glucose 96 mg/dl (70-90) White Blood Count 4.90 K/uL (4.8-10.8) Red Blood Count 4.78 M/uL (4.2-5.4) Hemoglobin 14.4 g/dL (12.0-16.0) Hematocrit 41.4 % (37-47) Mean Corpuscular Volume 86.6 fL (80-100) Mean Corpuscular Hemoglobin 30.1 pg (25-34) Mean Corpuscular Hemoglobin Concent 34.8 g/dl (32-36) Platelet Count 268 K/uL (130-400) Mean Platelet Volume 9.6 fL (7.4-10.4) Neutrophils (%) (Auto) 44.5 % Lymphocytes (%) (Auto) 45.9 % Monocytes (%) (Auto) 8.6 % Eosinophils (%) (Auto) 0.2 % Basophils (%) (Auto) 0.4 % Neutrophils # (Auto) 2.18 K/uL (1.4-6.5) Lymphocytes # (Auto) 2.25 K/uL (1.2-3.4) Monocytes # (Auto) 0.42 K/uL (0.11-0.59) Eosinophils # (Auto) 0.01 K/uL (0-0.5) Basophils # (Auto) 0.02 K/uL (0-0.2) RDW Standard Deviation 41.5 fL (36.4-46.3) RDW Coefficient of Variation 13.0 % (11.5-14.5) Immature Granulocyte % (Auto) 0.4 % Immature Granulocyte # (Auto) 0.02 K/uL (0.00-0.02) Anion Gap 4.0 mmol/L (3-11) Estimated GFR () 145.3 Estimated GFR (Non- 125.3 BUN/Creatinine Ratio 15.2 (10-20) Calcium Level 8.6 mg/dl (8.5-10.1) Total Bilirubin 0.2 mg/dl (0.2-1) Alanine Aminotransferase (ALT/SGPT) 20 U/L (12-78) Alkaline Phosphatase 59 U/L (45-117) Total Protein 7.5 gm/dl (6.4-8.2) Albumin 3.7 gm/dl (3.4-5.0) Thyroid Stimulating Hormone (TSH) 2.070 uIu/ml (0.300-4.500) Ethyl Alcohol mg/dL 138.0 mg/dl (0-3) Urine Color YELLOW Urine Appearance CLEAR (CLEAR) Urine pH 6.0 (4.5-7.5) Urine Specific Flushing 1.013 (1.000-1.030) Urine Protein NEG (NEG) Urine Glucose (UA) NEG (NEG) Urine Ketones NEG (NEG) Urine Occult Blood NEG (NEG) Urine Nitrite NEG (NEG) Urine Bilirubin NEG (NEG) Urine Urobilinogen NEG (NEG) Urine Leukocyte Esterase NEG (NEG) Urine Opiates Screen NEG (NEG) Urine Methadone, Qualitative NEG (NEG) Urine Barbiturates NEG (NEG) Urine Phencyclidine (PCP) Level NEG (NEG) Ur Amphetamine/Methamphetamine NEG (NEG) MDMA (Ecstasy) Screen NEG (NEG) Urine Benzodiazepines Screen NEG (NEG) Urine Cocaine Metabolite NEG (NEG) Urine Marijuana (THC) NEG (NEG) Test 10/27/16 04:44 Direct Bilirubin < 0.1 mg/dl (0-0.2) Aspartate Amino Transf (AST/SGOT) 12 U/L (15-37) Labs reviewed by ED physician. Medications Administered Medications (Trade) Dose Ordered Sig/Olvin Route Start Time Stop Time Status Last Admin Dose Admin Sodium Chloride 1,000 ml @ 999 mls/hr Q1H1M STAT IV 10/27/16 03:28 10/27/16 04:28 DC 10/27/16 04:30 999 MLS/HR Acetaminophen (Tylenol Tab) 650 mg NOW STAT PO 10/27/16 09:16 10/27/16 09:17 DC 10/27/16 09:22 650 MG ECG Indication: other (alcohol overdose) Rate (beats per minute): 79 Rhythm: normal sinus Findings: no acute ischemic change, no ectopy ED Course 0328: Past medical records reviewed. The patient was evaluated in room B5. A complete history and physical examination was performed. Medical Decision Differential diagnosis: Etiologies such as alcohol intoxication, toxicologic, infection, hypoglycemia, electrolyte abnormalities, cardiac sources, intracerebral event, neurologic, as well as others were entertained. This is a 25-year-old female who was found by the side of the road. Upon arrival to the emergency department the patient is unresponsive however is compliant 1 we are moving the patient or obtaining laboratory work. After sometime she did awaken and discuss the evenings prior events. She denies being suicidal or homicidal. She was not very forthcoming during mental health assessment so we will hold the patient a little bit longer for her to sober up. She was signed out to Dr. Schaefer at change of shift. Impression Primary Impression: Alcohol use with intoxication Scribe Attestation The scribe's documentation has been prepared under my direction and personally reviewed by me in its entirety. I confirm that the note above accurately reflects all work, treatment, procedures, and medical decision making performed by me. Departure Information Dispostion Home / Self-Care Referrals No Doctor, Assigned (PCP) Patient Instructions [facility]
[2016-10-27] MEDS ORDERED: BCPILLS PO (06:20)
[2016-10-27 06:34] LABS: BENZODIAZEPINE, URINE NEG (NEG); COCAINE,URINE NEG (NEG); PHENCYCLIDINE, URINE NEG (NEG)
--- NOTE | 2016-10-27 06:47 | DIAGNOSTIC IMAGING REPORT ---
HEAD CT NONCONTRAST CT DOSE: HISTORY: Altered mental status. TECHNIQUE: Multiaxial CT images of the head were performed without the use of intravenous contrast. Automated exposure control was utilized for this study. A dose lowering technique was utilized adhering to the principles of ALARA. Comparison: None. Findings: Mild motion artifact. The paranasal sinuses and mastoid air cells are clear. The calvarium and skull base are intact. The ventricles and sulci are within normal limits. There is no mass, hematoma, midline shift, or acute infarct. Impression: No acute intracranial abnormality. Electronically signed by: Augusto Patel M.D. 10/27/2016 6:46 AM Dictated Date/Time: 10/27/2016 6:45 AM
[2016-10-27] MEDS ORDERED: ACETAMINOPHEN 325 MG TAB PO STA (09:16)
[2016-10-27 09:25] VITALS: BP 106/57; PULSE 88; O2SAT 97
[2016-10-27] MEDS ORDERED: CITA40TA12 PO (09:25)
--- NOTE | 2016-10-27 15:06 | EMERGENCY ROOM VISIT NOTE ---
ED Visit Note First contact with patient: 06:46 I received this patient in signout the change of shift from Dr. Hancock, pending mental health evaluation. The patient was initially evaluated and felt to be too intoxicated to participate in the conversation. On secondary evaluation later in the morning, the patient denied any suicidal or homicidal thoughts. Her fianc was contacted. He states he has witnessed the patient taking her medications and she has been compliant with her outpatient therapies. He has agreed to pick the patient up and helped safety plan with her today. The patient was discharged to continue her medications as prescribed , avoid alcohol and follow up with her therapist. She will return to the ER for worsening of symptoms or any medical concerns.
== END 2016-10-27 09:45 | disposition home or self-care (01) ==
LOC: C.EDB 03:32 → MERGE 03:32 → EDBD 03:32 → C.EDA 09:45
DX: F10.920 Alcohol use, unspecified with intoxication, uncomplicated (principal); S61.512A Laceration without foreign body of left wrist, initial encounter; W45.8XXA Other foreign body or object entering through skin, initial encounter; F17.210 Nicotine dependence, cigarettes, uncomplicated; Z79.3 Long term (current) use of hormonal contraceptives; Z79.899 Other long term (current) drug therapy

== ENCOUNTER 2023-12-09 02:09 | Inpatient (IN) ==
--- NOTE | 2023-12-09 02:30 | Emergency Department Note ---
Impression & Plan Self-inflicted laceration of left wrist, Syncope, Depression, CHI (closed head injury), Suicidal ideation ED Provider Note ED Provider Note NAME: HAN PALACIOS AGE:33 SEX: Female : 1990 ARRIVES VIA: EMS INFORMANT: Patient ED PROVIDER(s): Alysha Machuca DO CHIEF COMPLAINT: Mental health evaluation, self-inflicted laceration and subsequent syncope HPI: This is a 33-year-old female who presents to the Emergency Department via EMS with PSP accompanying due to concern for self-inflicted injury to the left wrist followed by syncopal event. Patient works the overnight shift at [employer]. She states she does have a history of anxiety and depression as well as ADHD for which she takes Adderall. She states she is currently going through a divorce and has had increased stress. She states she took extra Adderall around 10 PM at the start of her shift, and shortly before 1:30 AM went into the bathroom and attempted to cut her own wrists using a staple remover. She states she went to stand up from a sitting position and subsequently passed out. She states when she woke up the back of her head hurt as did her neck, she is not sure why she passed out. She states she does have a history of syncope related to significant pain and/or site of blood. PSP states that when they got there patient was on the floor next to the toilet in the bathroom stall with a coworker applying pressure to the bleeding that was noted at the left wrist. Patient was able to maintain consciousness otherwise. EMS reports stable vitals throughout. 302 filled out by PSP. PAST MEDICAL HISTORY:See Below PAST SURGICAL HISTORY:See Below FAMILY HISTORY:See Below SOCIAL HISTORY:See Below HOME MEDICATIONS:See Below ALLERGIES:See Below VITALS:See Below PHYSICAL EXAMINATION: GENERAL: alert, well nourished, no distress, non-toxic EYE EXAM: normal conjunctiva, PERRL and EOM's grossly intact OROPHARYNX: no exudate, no erythema, lips, buccal mucosa, and tongue normal and mucous membranes are moist NECK: supple, no nuchal rigidity, no adenopathy, non-tender, c-collar applied by EMS LUNGS: Clear to auscultation. Normal chest wall mechanics, no w/r/r HEART: no murmurs, S1 normal and S2 normal ABDOMEN: abdomen soft, non-tender, normo-active bowel sounds, no masses, no rebound or guarding. BACK: Back is symmetrical on inspection and there is no deformity, no midline tenderness SKIN: no rashes, petechiae, orbruising UPPER EXTREMITIES: upper extremities are grossly normal. FROM, nml pulses b/l. Superficial lacerations noted to the ventral left wrist and distal forearm. No active bleeding. LOWER EXTREMITIES: No pitting edema. FROM, nml pulses b/l. NEURO EXAM: Normal sensorium, cranial nerves II-XII grossly intact, normal speech, no facial droop,nogross weakness of arms, no gross weakness of legs. Gross sensation intact. No ataxia. Vital Signs: reviewed and remarkable Differential Diagnosis: mood disorder, suicidal ideation, anxiety, depression, substance abuse, toxidrome, infection, hypoglycemia, electrolyte abnormalities, ICH as well as others were considered. MEDICAL DECISION MAKING: This is a 33-year-old female with a history of anxiety and depression who presents emergency department via EMS with PSP after patient attempted to cut her own wrists while at work. Patient was afebrile and vital signs stable. Labs drawn and sent, IV established, EKG performed at bedside interpreted by me and patient monitored on telemetry. She was given a liter of IV fluids while further evaluation was undertaken due to the reported syncope. Based on patient's report, age, and reassuring evaluation here I suspect the syncope was related to a combination of orthostatic symptoms from position change, as well as vagal reaction from pain in the site of blood. No ectopy or dysrhythmia noted. Patient's labs and imaging reassuring. I will low suspicion for any additional occult traumatic injury. I do not suspect other coingestions, toxidrome, or occult infectious etiology. No bleeding from wound here and I do not feel requires additional repair. Patient evaluated by ER case management and referred to [facility] liaison evaluated the patient in signed by the patient and myself. Patient accepted to [facility] for additional inpatient mental health treatment. Consultation(s): 601: Patient seen and evaluated by case management and referred to [facility] liaison came and discussed with the patient in the emergency department. 201 signed by me at that time. ER Treatment Provided: See below Diagnostics Interpreted By Me: -ECG: Normal sinus at 72, normal axis, normal intervals, no acute ST/T wave changes -Cardiac Monitoring: An order was placed for continuous cardiac monitoring. The monitor shows a rate of 72 with normal sinus rhythm. -Laboratory studies: As stated above and show below. -Imaging studies: CT head: No ICH Triage Nursing Note Reviewed Prior/Outside Records Reviewed Past Med/Surg History Problem List (Updated 12/09/23 @ 02:30 by Alysha Machuca DO) Suicidal ideation (Acute) CHI (closed head injury) (Acute) Depression (Acute) Syncope (Acute) Self-inflicted laceration of left wrist (Acute) Otitis media of both ears (Acute) Syncope (Acute) Vaginal discharge (Acute) Vaginal discharge (Acute) Medical History Depression Seasonal allergies Chronic headaches Surgical History History of arthroscopic knee surgery Social History Smoking Status: Current every day smoker Tobacco Type: E-cigarettes / Vaping Preferred Language: Divehi marital status: Current Living Situation: Spouse current occupational status: employed Feels Safe at Home: Yes Gender Identity: Female Allergies Allergies Allergy/AdvReac Type Severity Reaction Status Date / Time Iodinated Contrast Media Allergy Intermediate HIVES Verified 10/24/23 11:08 Home Meds Home Medications Medication Instructions Recorded Confirmed norgestimate 0.25 mg-ethinyl 1 tab PO DAILY 07/30/19 10/24/23 estradiol 35 mcg tablet (Sprintec (28)) LW-UK-ctjabo/FJ-sgzarm-libycgo 1 cap PO DIRECTED PRN Cold 03/01/22 10/24/23 10-5-325mg(d)/15-325-6.25mg Symptoms capsules (Vicks DayQuil-NyQuil) brexpiprazole 3 mg tablet (Rexulti) 3 mg PO DAILY 03/01/22 10/24/23 dextroamphetamine-amphetamine ER 0 mg PO QAM 03/01/22 10/24/23 30 mg 24hr capsule,extend release vortioxetine 20 mg tablet 20 mg PO DAILY 03/01/22 10/24/23 (Trintellix) Previous Rx's Medication Instructions Recorded phenazopyridine 200 mg tablet 200 mg PO TID PRN pain 6 doses #6 09/21/22 (Pyridium) tabs Results & Data (ED) Vital Signs Vital Signs - 24 hr 12/09/23 02:18 12/09/23 02:18 12/09/23 02:20 Pulse Rate 85 Pulse Rate [Apical] Pulse Rate from SpO2 Sensor Pulse Rhythm [Apical] Pulse Strength [Apical] Respiratory Rate 16 Respiratory Effort / Characteristics Non-Labored Respiratory Depth Normal Respiratory Pattern Regular Blood Pressure 131/81 131/81 131/81 Blood Pressure [Right Arm] Blood Pressure Mean 91 91 97 Blood Pressure Mean [Right Arm] Blood Pressure Position [Right Arm] Pulse Oximetry 98 Oxygen Delivery Method Room Air Sepsis Recent Fever Within 48 Hours No Sepsis New/Unexplained Change in Mental Status No Sepsis Action Taken by Nursing No Action Required 12/09/23 02:20 12/09/23 02:21 12/09/23 02:45 Pulse Rate 82 87 95 H Pulse Rate [Apical] Pulse Rate from SpO2 Sensor 84 94 H Pulse Rhythm [Apical] Pulse Strength [Apical] Respiratory Rate 21 19 Respiratory Effort / Characteristics Respiratory Depth Respiratory Pattern Blood Pressure Blood Pressure [Right Arm] Blood Pressure Mean Blood Pressure Mean [Right Arm] Blood Pressure Position [Right Arm] Pulse Oximetry 97 99 Oxygen Delivery Method Sepsis Recent Fever Within 48 Hours Sepsis New/Unexplained Change in Mental Status Sepsis Action Taken by Nursing 12/09/23 03:15 12/09/23 03:30 12/09/23 03:48 Pulse Rate 72 74 64 Pulse Rate [Apical] Pulse Rate from SpO2 Sensor 73 73 65 Pulse Rhythm [Apical] Pulse Strength [Apical] Respiratory Rate 11 L 14 14 Respiratory Effort / Characteristics Respiratory Depth Respiratory Pattern Blood Pressure Blood Pressure [Right Arm] Blood Pressure Mean Blood Pressure Mean [Right Arm] Blood Pressure Position [Right Arm] Pulse Oximetry 100 99 100 Oxygen Delivery Method Sepsis Recent Fever Within 48 Hours Sepsis New/Unexplained Change in Mental Status Sepsis Action Taken by Nursing 12/09/23 03:54 12/09/23 03:54 12/09/23 03:57 Pulse Rate 73 Pulse Rate [Apical] Pulse Rate from SpO2 Sensor 73 Pulse Rhythm [Apical] Pulse Strength [Apical] Respiratory Rate 16 Respiratory Effort / Characteristics Respiratory Depth Respiratory Pattern Blood Pressure 126/81 126/81 Blood Pressure [Right Arm] Blood Pressure Mean 90 90 Blood Pressure Mean [Right Arm] Blood Pressure Position [Right Arm] Pulse Oximetry 99 Oxygen Delivery Method Sepsis Recent Fever Within 48 Hours Sepsis New/Unexplained Change in Mental Status Sepsis Action Taken by Nursing 12/09/23 04:00 12/09/23 04:00 12/09/23 04:00 Pulse Rate Pulse Rate [Apical] Pulse Rate from SpO2 Sensor Pulse Rhythm [Apical] Pulse Strength [Apical] Respiratory Rate Respiratory Effort / Characteristics Respiratory Depth Respiratory Pattern Blood Pressure 123/77 123/77 123/77 Blood Pressure [Right Arm] Blood Pressure Mean 89 89 89 Blood Pressure Mean [Right Arm] Blood Pressure Position [Right Arm] Pulse Oximetry Oxygen Delivery Method Sepsis Recent Fever Within 48 Hours Sepsis New/Unexplained Change in Mental Status Sepsis Action Taken by Nursing 12/09/23 04:00 12/09/23 04:00 12/09/23 04:18 Pulse Rate 81 Pulse Rate [Apical] 80 Pulse Rate from SpO2 Sensor 80 Pulse Rhythm [Apical] Regular Pulse Strength [Apical] Normal Respiratory Rate 16 12 Respiratory Effort / Characteristics Non-Labored Respiratory Depth Normal Respiratory Pattern Regular Blood Pressure 123/77 Blood Pressure [Right Arm] 123/77 Blood Pressure Mean 89 Blood Pressure Mean [Right Arm] 92 Blood Pressure Position [Right Arm] Lying Pulse Oximetry 98 99 Oxygen Delivery Method Room Air Sepsis Recent Fever Within 48 Hours Sepsis New/Unexplained Change in Mental Status Sepsis Action Taken by Nursing 12/09/23 04:33 Pulse Rate 69 Pulse Rate [Apical] Pulse Rate from SpO2 Sensor 71 Pulse Rhythm [Apical] Pulse Strength [Apical] Respiratory Rate 16 Respiratory Effort / Characteristics Respiratory Depth Respiratory Pattern Blood Pressure Blood Pressure [Right Arm] Blood Pressure Mean Blood Pressure Mean [Right Arm] Blood Pressure Position [Right Arm] Pulse Oximetry 100 Oxygen Delivery Method Sepsis Recent Fever Within 48 Hours Sepsis New/Unexplained Change in Mental Status Sepsis Action Taken by Nursing Laboratory Data 12/09/23 02:37 12/09/23 02:37 Lab Results 12/09/23 12/09/23 Range/Units 02:37 04:00 WBC 6.96 (4.8-10.8) K/ul RBC 4.34 (4.20-5.40) M/uL Hgb 12.4 (12.0-16.0) g/dl Hct 37.6 (37.0-47.0) % MCV 86.6 (80.0-100.0) fL MCH 28.6 (25.0-34.0) pg MCHC 33.0 (32.0-36.0) g/dL RDW Std Deviation 39.8 (36.4-46.3) fL RDW Coeff of Marry 12.6 (11.5-14.5) % Plt Count 316 (130-400) K/uL MPV 9.3 L (9.4-12.4) fL Immature Gran % (Auto) 0.3 % Neut % (Auto) 41.6 % Lymph % (Auto) 50.4 % [place] % (Auto) 5.9 % Eos % (Auto) 1.1 % Baso % (Auto) 0.7 % Neut # (Auto) 2.89 (1.40-6.50) K/uL Lymph # (Auto) 3.51 H (1.20-3.40) K/uL [place] # (Auto) 0.41 (0.11-0.59) K/uL Eos # (Auto) 0.08 (0.00-0.50) K/uL Baso # (Auto) 0.05 (0.00-0.20) K/uL Immature Gran # (Auto) 0.02 (0.01-0.20) K/uL RBC Morphology Unremarkable Sodium 140 (136-145) mmol/L Potassium 3.2 L (3.5-5.1) mmol/L Chloride 108 H (98-107) mmol/L Carbon Dioxide 26 (21-32) mmol/L Anion Gap 6 (3-11) BUN 11 (6-23) mg/dl Creatinine 0.93 (0.6-1.2) mg/dl Est Cr Clr Drug Dosing 100.9 ml/min Est GFR ( Amer) 93.6 ml/min Est GFR (Non-Af Amer) 80.8 ml/min BUN/Creatinine Ratio 11.8 (10-20) Glucose 71 (70-99(Fasting)) mg/dl Calcium 9.0 (8.6-10.3) mg/dl Total Bilirubin 0.4 (0.2-1.0) mg/dl AST 14 (13-39) U/L ALT 13 (7-52) U/L Alkaline Phosphatase 62 (34-104) U/L Troponin I High Sens < 2.3 (0-14) pg/ml Total Protein 6.7 (6.0-8.3) gm/dl Albumin 4.1 (3.4-5.0) gm/dl Globulin 2.6 (2.5-4.0) gm/dl Albumin/Globulin Ratio 1.6 (0.9-2) TSH 5.033 H (0.300-4.500) uIu/ml HCG, Qual Negative (Negative) Urine Color Yellow Urine Appearance Clear (Clear) Urine pH 6.0 (4.5-7.5) Ur Specific [place] 1.025 (1.000-1.030) Urine Protein Negative (Negative) Urine Glucose (UA) Negative (Negative) Urine Ketones Trace H (Negative) Urine Blood Negative (Negative) Urine Nitrite Negative (Negative) Urine Bilirubin Negative (Negative) Urine Urobilinogen Negative (Negative) Ur Leukocyte Esterase Negative (Negative) Salicylates < 3.0 L (3.0-30) mg/dl Urine Opiates Screen Neg (Neg) Ur Methadone, Qual Neg (Neg) Urine Fentanyl Screen Neg (Neg) Acetaminophen < 3 L (10-30) ug/ml Urine Barbiturates Neg (Neg) Ur Phencyclidine (PCP) Neg (Neg) U Amphetamin/Meth Scrn Pos H (Neg) MDMA (Ecstasy) Screen Neg (Neg) U Benzodiazepines Scrn Neg (Neg) Ur Cocaine Metabolite Neg (Neg) U Marijuana (THC) Screen Pos H (Neg) Ethyl Alcohol mg/dL < 10.0 (<10.0) mg/dl SARS-CoV-2, RNA, NAAT NEGATIVE (NEGATIVE) Administered Medications Discontinued Medications Sodium Chloride (Nss) 1,000 mls @ 999 mls/hr IV .Q1H1M MEHREEN Stop: 12/09/23 03:30 Last Infusion: 12/09/23 04:09 Dose: Infused Documented By: Admin: 12/09/23 03:08 Dose: 999 mls/hr Documented By: YUDY Imaging Data Radiologist's Impression: Cervical Spine CT 12/09/23 02:25 Exam(s): CT C SPINE EXAM: CT Cervical Spine Without Intravenous Contrast CLINICAL HISTORY: Reason for exam: trauma. TECHNIQUE: Axial computed tomography images of the cervical spine without intravenous contrast. CTDI is 22.33 mGy and DLP is 438.58 mGy-cm. Automated exposure control was utilized for the study. A dose lowering technique was utilized adhering to the principles of ALARA. COMPARISON: No relevant prior studies available. FINDINGS: Vertebrae: Unremarkable. No acute fracture. Discs/spinal canal/neural foramina: No acute findings. No spinal canal stenosis. Soft tissues: Unremarkable. IMPRESSION: Normal cervical spine CT. Electronically signed by: Jonah Burks MD 12/09/23 03:[address] 12/09/23 02:25 Exam(s): CT HEAD Without Contrast EXAM: CT Head Without Intravenous Contrast CLINICAL HISTORY: Reason for exam: trauma. TECHNIQUE: Axial computed tomography images of the head/brain without intravenous contrast. CTDI is 36.79 mGy and DLP is 624.41 mGy-cm. Automated exposure control was utilized for the study. A dose lowering technique was utilized adhering to the principles of ALARA. COMPARISON: No relevant prior studies available. FINDINGS: No acute intracranial hemorrhage. No midline shift or mass effect. The territorial aburto-white matter differentiation is maintained throughout. The ventricles and sulci are commensurate with age. The visualized orbits appear grossly unremarkable. The calvarium is intact. The visualized paranasal sinuses and mastoid air cells are grossly clear. IMPRESSION: No acute intracranial hemorrhage, midline shift, or mass effect. Electronically signed by: Jonah Burks MD 12/09/23 03:42 AM Discharge Plan Visit Data Chief Complaint: Mental Health Evaluation Stated Complaint: ATTEMPTED SUICIDE ED Provider: Alysha Machuca Discharge Problem: Self-inflicted laceration of left wrist, Syncope, Depression, CHI (closed head injury), Suicidal ideation Discharge Instructions Interventions: ED Discharge Assessment Last Done: 12/09/23 06:06
[2023-12-09 03:07] LABS: Hematocrit (blood only) 37.6 % (37.0-47.0); Hemoglobin 12.4 g/dl (12.0-16.0); Mean Corpuscular Hemoglobin 28.6 pg (25.0-34.0); Mean Corpuscular Volume 86.6 fL (80.0-100.0); Mean Platelet Volume 9.3 fL (9.4-12.4); Platelet Count 316 K/uL (130-400); RDW Coefficient of Variation 12.6 % (11.5-14.5); RDW Standard Deviation 39.8 fL (36.4-46.3); Red Blood Count 4.34 M/uL (4.20-5.40); White Blood Count 6.96 K/ul (4.8-10.8)
[2023-12-09] MEDS: SODIUM CHLORIDE 0.9% 1,000 ML IV SCH (03:08)
--- NOTE | 2023-12-09 03:26 | CT Scan Report ---
Exam(s): CT C SPINE EXAM: CT Cervical Spine Without Intravenous Contrast CLINICAL HISTORY: Reason for exam: trauma. TECHNIQUE: Axial computed tomography images of the cervical spine without intravenous contrast. CTDI is 22.33 mGy and DLP is 438.58 mGy-cm. Automated exposure control was utilized for the study. A dose lowering technique was utilized adhering to the principles of ALARA. COMPARISON: No relevant prior studies available. FINDINGS: Vertebrae: Unremarkable. No acute fracture. Discs/spinal canal/neural foramina: No acute findings. No spinal canal stenosis. Soft tissues: Unremarkable. IMPRESSION: Normal cervical spine CT. Electronically signed by: Jonah Burks MD 12/09/23 03:25 AM
[2023-12-09 03:29] LABS: Basophils # (auto) 0.05 K/uL (0.00-0.20); Basophils % (auto) 0.7 %; Eosinophils # (auto) 0.08 K/uL (0.00-0.50); Eosinophils % (auto) 1.1 %; Immature Granulocytes # (auto) 0.02 K/uL (0.01-0.20); Immature Granulocytes % (auto) 0.3 %; Lymphocytes # (auto) 3.51 K/uL (1.20-3.40); Lymphocytes % (auto) 50.4 %; Monocytes # (auto) 0.41 K/uL (0.11-0.59); Monocytes % (auto) 5.9 %; Neutrophils # (auto) 2.89 K/uL (1.40-6.50); Neutrophils % (auto) 41.6 %; RBC Morphology Unremarkable
[2023-12-09 03:33] LABS: Pregnancy Test, Serum Negative (Negative)
[2023-12-09 03:36] LABS: Alanine Aminotransferase 13 U/L (7-52); Albumin Globulin Ratio 1.6 (0.9-2); Albumin Level 4.1 gm/dl (3.4-5.0); Alkaline Phosphatase 62 U/L (34-104); Anion Gap 6 (3-11); Aspartate Aminotransferase 14 U/L (13-39); BUN Creatinine Ratio 11.8 (10-20); Bilirubin,Total 0.4 mg/dl (0.2-1.0); Blood Urea Nitrogen 11 mg/dl (6-23); Carbon Dioxide 26 mmol/L (21-32); Chloride 108 mmol/L (98-107); Creatinine Clr Calc Pharmacy 100.9 ml/min; Est GFR (African American) 93.6 ml/min; Est GFR (Non-African American) 80.8 ml/min; Globulin 2.6 gm/dl (2.5-4.0); Glucose 71 mg/dl (70-99(Fasting)); Potassium 3.2 mmol/L (3.5-5.1); Sodium 140 mmol/L (136-145); Total Protein 6.7 gm/dl (6.0-8.3)
[2023-12-09 03:43] LABS: Troponin I High Sensitivity < 2.3 pg/ml (0-14)
--- NOTE | 2023-12-09 03:43 | CT Scan Report ---
Exam(s): CT HEAD Without Contrast EXAM: CT Head Without Intravenous Contrast CLINICAL HISTORY: Reason for exam: trauma. TECHNIQUE: Axial computed tomography images of the head/brain without intravenous contrast. CTDI is 36.79 mGy and DLP is 624.41 mGy-cm. Automated exposure control was utilized for the study. A dose lowering technique was utilized adhering to the principles of ALARA. COMPARISON: No relevant prior studies available. FINDINGS: No acute intracranial hemorrhage. No midline shift or mass effect. The territorial aburto-white matter differentiation is maintained throughout. The ventricles and sulci are commensurate with age. The visualized orbits appear grossly unremarkable. The calvarium is intact. The visualized paranasal sinuses and mastoid air cells are grossly clear. IMPRESSION: No acute intracranial hemorrhage, midline shift, or mass effect. Electronically signed by: Jonah Burks MD 12/09/23 03:42 AM
[2023-12-09 03:49] LABS: Acetaminophen < 3 ug/ml (10-30); Salicylate < 3.0 mg/dl (3.0-30)
[2023-12-09 03:53] LABS: Thyroid Stimulating Hormone 5.033 uIu/ml (0.300-4.500)
[2023-12-09 04:22] LABS: Appearance Urine Clear (Clear); Bilirubin Urine Negative (Negative); Blood Urine Negative (Negative); Color Urine Yellow; Glucose Urine UA Negative (Negative); Ketones Urine Trace (Negative); Leukocyte Esterase Urine Negative (Negative); Nitrite Urine Negative (Negative); Protein Urine Negative (Negative); Specific Gravity Urine 1.025 (1.000-1.030); Urobilinogen Urine Negative (Negative)
[2023-12-09 05:10] LABS: Amphetamines+Metham, Urine Pos (Neg); Barbiturates, Urine Neg (Neg); Benzodiazepine, Urine Neg (Neg); Cocaine, Urine Neg (Neg); Fentanyl, Urine Neg (Neg); MDMA (Ecstacy), Urine Neg (Neg); Marijuana, Urine Pos (Neg); Methadone, Urine Neg (Neg); Opiate, Urine Neg (Neg); Phencyclidine, Urine Neg (Neg)
[2023-12-09] MEDS ORDERED: ALUMINUM/MAGNESIUM SUSP 30 ML UDC PO PRN (06:10)
[2023-12-09] MEDS ORDERED: SODIUM CHLORIDE 0.65% NA SOLN 45 ML (OCEAN) PRN (06:10)
[2023-12-09] MEDS ORDERED: BISMUTH SUBSALICYLATE LIQD 236 ML PO PRN (06:10)
[2023-12-09] MEDS ORDERED: ACETAMINOPHEN 325 MG TAB PO PRN (06:10)
[2023-12-09] MEDS ORDERED: NICOTINE POLACRILEX 2 MG GUM MT PRN (06:10)
[2023-12-09] MEDS ORDERED: MAGNESIUM HYDROXIDE SUSP 30 ML UDC PO PRN (06:10)
[2023-12-09] MEDS ORDERED: hydrOXYzine HCl 25 MG TAB PO PRN ×2 (06:10)
[2023-12-09 06:57] VITALS: BP 128/88; PULSE 70; RESP 15; TEMP 97.9; O2SAT 99
[2023-12-09] MEDS: POTASSIUM CHLORIDE CRTAB 20 MEQ TABCR PO STA (07:14)
[2023-12-09] MEDS ORDERED: DEXTROAMPHETAMINE/AMPHETAMINE ER 20 MG CAP PO SCH (09:00)
[2023-12-09] MEDS ORDERED: DEXTROAMPHETAMINE/AMPHETAMINE IR 20 MG TAB PO SCH (09:00)
[2023-12-09] MEDS: NICOTINE 21 MG/24 HR TDSY TD SCH (12:57)
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
--- NOTE | 2023-12-09 18:42 | Electrocardiogram Report ---
Test Reason : Blood Pressure : */* mmHG Vent. Rate : 72 BPM Atrial Rate : 72 BPM P-R Int : 158 ms QRS Dur : 78 ms QT Int : 384 ms P-R-T Axes : 60 58 31 degrees QTcB Int : 420 ms Normal sinus rhythm Normal ECG When compared with ECG of 05-Sep-2023 11:29, No significant change was found Confirmed by Juliano Valdez ([id number]) on 12/09/2023 6:41:48 PM Referred By: REFERRED SELF Confirmed By: Juliano Valdez
[2023-12-12 12:37] LABS: Amphetamine Urine, Confirm >15000 ng/mL (<250); Marijuana Quant, GCMS Urine 405 ng/mL (<5); Methamphetamine, Ur Confirm NEGATIVE ng/mL (<250)
== END 2023-12-09 15:05 | disposition home or self-care (01) | DRG 885 ==
LOC: ED 02:09 → 3S 05:38